=== PATIENT | female | born 1940 | race Caucasian/White ===

== ENCOUNTER → 2016-06-16 | Outpatient (CLI) | payer BC, MEDICARE ==
[~2016-06-16] MED LIST: ASPIRIN325 M1 PO; CELEBREX 200MG200 MG PO; LEVOTHYROXIN0.137 M1 PO; MAXZIDE 25 MG-31 TAB PO; METOPROLOL SUCC25 M1 PO; POLYCARB625 MG OR; ZESTRIL 2.5MG2.5 MG NG
[2016-06-16 10:13] LABS: BUN 20 mg/dL (7-18); GFR (ESTIMATED) 82 ML/MIN (59-)
[2016-06-19 04:39] LABS: Creatinine, Urine 69.9 mg/dL (Not Estab.); Microalbumin, Urine <3.0 ug/mL (Not Estab.)
== END ==
LOC: LAB 08:18
PROVIDERS: Family Medicine
DX: I10 Essential (primary) hypertension (principal); E03.9 Hypothyroidism, unspecified; E78.5 Hyperlipidemia, unspecified